=== PATIENT | male | born 1990 | race Caucasian/White ===

== ENCOUNTER 2023-04-12 14:20 | Outpatient (AMB) | payer BC, MEDICAID, SELFPAY ==
[2023-04-12 14:32] VITALS: BP 90/62; PULSE 69; O2SAT 97; BMI 20.1
--- NOTE | 2023-04-12 14:32 | MHC.PC.OV ---
Vital Signs 04/12/23 14:32 Height 5 ft 10.67 in Weight 143 lb 0.2 oz BMI 20.1 BP 90/62 Blood Pressure Location Lt radial Pulse 69 Pulse Source Pulse Oximeter Pulse Oximetry (%) 97 Oxygen Delivery Method Room Air Intake Visit Reasons: New Patient/Hepatitis C Fruit Cutter Required: No Allergies No Known Allergies [No Known Allergies*] Allergy (Verified 04/12/23 14:46) Medication List - Last Reconciled 04/12/23 by CHARLI Parker clonidine HCl 0.1 mg PO TID methadone 100 mg PO DAILY Tobacco use date assessed: 04/12/23 Dental Screening Dental Screen Date: 04/12/23 Did you have a dental visit in the last 12 months?: No Did you have a dental problem in the last 6 months where you did not have access to dental care?: No HPI New Patient/Hepatitis C HPI Details Patient is a 33-year-old male who presents today to establish care. No PCP in a while per patient. Medical history significant for anxiety, history of polysubstance abuse-currently on methadone-followed by Dr. Moreno at [facility]), also reports hepatitis C-will be starting hepatitis C treatment next week with Dr. Moreno. Denies shortness of breath or chest pain. [facility] Surgical History No pertinent past surgical history Family History Mother No problems noted. Father No problems noted. Social History Housing: Apartment Patient Tobacco Use Status: Never used Tobacco e-Cigarette/Vaping Use: Currently Using service: No Current occupational status: employed Cognitive needs: No Hearing needs: No Vision needs: No Questionnaire PHQ-9 Over the last 2 weeks, how often have you been bothered by any of the following problems? 1. Little interest or pleasure in doing things: not at all 2. Feeling down, depressed, or hopeless: several days 3. Trouble falling or staying asleep, or sleeping too much: not at all 4. Feeling tired or having little energy: not at all 5. Poor appetite or overeating: not at all 6. Feeling bad about yourself - or that you are a failure or have let yourself or your family down: not at all 7. Trouble concentrating on things, such as reading the newspaper or watching television: not at all 8. Moving or speaking so slowly that other people could have noticed. Or the opposite - being so fidgety or restless that you have been moving around a lot more than usual: not at all 9. Thoughts that you would be better off or of hurting yourself in some way: not at all Total score: 1 Depression Screening Interpretation: Positive Depression Screening Follow-up: Existing condition Depression Screening Done: Yes 30344 - PHQ-9 Billing: Yes Source: Developed by Drs. Vance Dale, Anuradha Ocasio, Caleb Parra and colleagues, with an educational lorenzo from [employer]. AUDIT C Alcohol Use Questionnaire (AUDIT-C) 1. How often do you have a drink containing alcohol?: 2-3 times a week 2. How many drinks containing alcohol do you have on a typical day when you are drinking?: 1 or 2 3. How often do you have six or more drinks on one occasion?: Never Total Score: 3 Score Reviewed/Action Taken: No ANIBAL-7 AMB Questionnaire ANIBAL-7 Date ANIBAL - 7 assessed: 04/12/23 Feeling nervous, anxious, or on edge: 1 = Several days Not being able to stop or control worryin = Several days Worrying too much about different things: 0 = Not at all Trouble relaxin = Not at all Being so restless that it is hard to sit still: 0 = Not at all Becoming easily annoyed or irritable: 0 = Not at all Feeling afraid as if something awful might happen: 0 = Not at all Total ANIBAL-7 score (0-4 normal; 5-9 mild; 10-14 moderate; 15-21 severe): 2 Source: Developed by Drs. Vance Dale, Anuradha Ocasio, Caleb Parra and colleagues, with an educational lorenzo from [employer]. ANIBAL-7 Assessment Billing ANIBAL-7 Assessment Tool: ANIBAL-7 Assessment 99928 Review of Systems Const Denies body aches, Denies chills, Denies fever(s) and Denies headache(s) Eyes Denies change in vision ENT Denies dizziness, Denies otalgia, Denies headache(s), Denies nasal discharge, Denies sinus pain and Denies sore throat Card Denies chest pain, Denies edema, Denies lightheadedness and Denies dyspnea Resp Denies cough, Denies dyspnea and Denies wheezing GI Denies abdominal pain, Denies constipation, Denies diarrhea, Denies nausea and Denies vomiting Denies dysuria Musc Denies myalgias Skin/Breast Denies rash Neuro Denies dizziness and Denies headache(s) Aller/Immun Denies wheezing Physical exam (Primary Care) Vital Signs: Last Vital Signs Pulse 69 04/12/23 14:32 BP 90/62 04/12/23 14:32 Pulse Ox 97 04/12/23 14:32 Oxygen Delivery Method Room Air 04/12/23 14:32 BMI result Body Mass Index 20.1 Tobacco/Smoking Status: Tobacco use Status Tobacco use date assessed 04/12/23 04/12/23 14:39 Patient Tobacco Use Status Never used Tobacco 04/12/23 14:39 e-Cigarette/Vaping Use Currently Using 04/12/23 14:39 PHQ-9: PHQ-9 Score PHQ-9: Total score 1 04/12/23 14:54 Depression Screening Interpretation: Positive Depression Screening Follow-up: Existing condition Const General: cooperative and no acute distress Orientation/consciousness: patient oriented x3 HENMT Head: Yes normocephalic and Yes atraumatic Ears: TM's normal bilaterally Face and sinus: Yes sinuses nontender Mouth: oropharynx normal and moist mucous membranes Throat: Yes posterior oropharynx normal Eyes General: appearance normal, both eyes and all related structures Pupils: Equal, round and reactive pupils present EOM: EOMs intact bilaterally Neck Neck: Yes normal visual inspection, Yes full ROM and Yes no lymphadenopathy Thyroid: Thyroid normal Resp Effort & Inspection: normal respiratory effort and able to speak in complete sentences Auscultation: clear to auscultation bilaterally, no crackles, no rales, no rhonchi and no wheezes Cardio Rate: regular rate Rhythm: regular rhythm Heart sounds: S1 normal heart sound present, S2 normal heart sound present and no murmurs GI Palpation (GI): Soft to palpation, not firm, nontender, no guarding, not rigid and no hepatosplenomegaly Auscultation: normal bowel sounds General: No CVA tenderness Back/Spine/Pelvis Back: No CVA tenderness Skin General skin exam: no rashes or lesions noted Neuro General: patient oriented x3 Cranial nerves: Yes Equal, round and reactive pupils present Gait exam (Neuro): Normal gait present Extrem General: Yes full ROM and No edema Assessment and Plan Assessment & Plan (1) Hepatitis C: Code(s): B19.20 - Unspecified viral hepatitis C without hepatic coma Plan: Patient reports that he will be starting hepatitis C treatment next week with Dr. Moreno, encouraged patient to call office with medication name and if he will need to be seen by ID or Dr. Moreno will be managing him (2) Polysubstance abuse: Comment: hx heroin use - on Methadone now Code(s): F19.10 - Other psychoactive substance abuse, uncomplicated Plan: On methadone followed by N (3) Encounter to establish care: Code(s): Z76.89 - Persons encountering health services in other specified circumstances (4) Anxiety: Code(s): F41.9 - Anxiety disorder, unspecified Plan: On clonidine t.i.d. - prescribed by Dr. Moreno Plan Follow-up in 3 months for PE Orders: Orders TSH reflex Free T4 04/12/23 Z76.89 - Persons encountering health services in other specified circumstances Lipid Panel 04/12/23 Z76.89 - Persons encountering health services in other specified circumstances Vitamin D 25-OH Total 04/12/23 Z - Persons encountering health services in other specified circumstances Comprehensive [place]. Panel Fast 04/12/23 Z76.89 - Persons encountering health services in other specified circumstances Complete Blood Count Auto Diff 04/12/23 Z - Persons encountering health services in other specified circumstances Hepatitis A,B,C Profile 04/12/23 B19.20 - Unspecified viral hepatitis C without hepatic coma Coding Level of Care Code New Pt Level 3 (02500) Diagnoses Hepatitis C B19.20 Polysubstance abuse F19.10 Encounter to establish care Z76.89 Anxiety F41.9 Additional Codes ANIBAL-7 Assessment Billing - ANIBAL-7 Assessment Tool: ANIBAL-7 Assessment 85607 ([id number])
== END 2023-04-12 15:05 | disposition home or self-care (01) ==
PROVIDERS: Visit Provider Nurse Practitioner Family
DX: B19.20 Unspecified viral hepatitis C without hepatic coma (principal); F19.10 Other psychoactive substance abuse, uncomplicated; Z76.89 Persons encountering health services in other specified circumstances; F41.9 Anxiety disorder, unspecified
CPT/HCPCS: 99203